=== PATIENT | female | born 1955 | race Caucasian/White ===

== ENCOUNTER 2023-07-03 16:21 | Outpatient (CLI) | payer MEDICARE, OTHER | END 2023-07-03 16:22 | disposition home or self-care (01) | LOC: MADRAD 16:21 | PROVIDERS: ATTEND Registered Nurse | DX: M54.50 Low back pain, unspecified (principal); M96.1 Postlaminectomy syndrome, not elsewhere classified; M47.816 Spondylosis without myelopathy or radiculopathy, lumbar region; M47.817 Spondylosis without myelopathy or radiculopathy, lumbosacral region; M47.815 Spondylosis without myelopathy or radiculopathy, thoracolumbar region | CPT/HCPCS: 72080; 72100 ==

== ENCOUNTER 2024-02-13 16:10 | Emergency (ER) | payer OTHER | END 2024-02-13 17:16 | disposition home or self-care (01) | LOC: MADERS 16:10 | DX: M79.672 Pain in left foot (principal); I10 Essential (primary) hypertension; E11.40 Type 2 diabetes mellitus with diabetic neuropathy, unspecified; Z79.82 Long term (current) use of aspirin ==

== ENCOUNTER 2024-05-13 17:16 | Emergency (ER) | payer OTHER ==
[2024-05-14 11:59] LABS: SARS-CoV-2 N1 Positive; SARS-CoV-2 N2 Positive; SARS-CoV-2 RNAse P1 Positive
== END 2024-05-13 18:01 | disposition home or self-care (01) ==
LOC: MADERS 17:16
DX: J06.9 Acute upper respiratory infection, unspecified (principal); I25.10 Atherosclerotic heart disease of native coronary artery without angina pectoris; I10 Essential (primary) hypertension; E78.5 Hyperlipidemia, unspecified; E11.51 Type 2 diabetes mellitus with diabetic peripheral angiopathy without gangrene; E11.40 Type 2 diabetes mellitus with diabetic neuropathy, unspecified
CPT/HCPCS: 87635; 99284